=== PATIENT | female | born 1985 | race Caucasian/White ===

== ENCOUNTER 2017-05-23 17:22 | Emergency (ER) | payer MEDICAID ==
[~2017-05-23] VITALS: Ht 149.9 cm; Wt 68.0 kg
[2017-05-23 17:59] VITALS: BP 120/64
[2017-05-23] MEDS ORDERED: GABA-529 PO (18:02)
[2017-05-23] MEDS ORDERED: NAPR-679 PO (18:02)
== END 2017-05-23 19:39 | disposition left against medical advice (07) ==
LOC: ER 18:31
DX: M79.661 Pain in right lower leg (principal); Z53.21 Procedure and treatment not carried out due to patient leaving prior to being seen by health care provider

== ENCOUNTER 2017-05-26 14:24 | Emergency (ER) | payer MEDICAID ==
[~2017-05-26] VITALS: Ht 149.9 cm; Wt 66.0 kg
[~2017-05-26 14:24] MED LIST: GABA-529 PO; NAPR-679 PO
[2017-05-26] MEDS ORDERED: ACETAMINOPHEN 500MG TABLET PO ONE (18:15)
[2017-05-26] MEDS ORDERED: IBUPROFEN 600MG TABLET PO ONE (18:15)
[2017-05-26 18:18] VITALS: BP 132/74
== END 2017-05-26 18:30 | disposition home or self-care (01) ==
LOC: ER 14:50
DX: M79.604 Pain in right leg (principal)
CPT/HCPCS: 99283